=== PATIENT | female | born 1960 | race Caucasian/White ===

== ENCOUNTER → 2017-09-19 13:47 | Outpatient (CLI) | payer MEDICARE, SELFPAY ==
--- NOTE | 2017-09-19 13:52 | RAD_ITS ---
STUDY: X-RAY CHEST REASON FOR EXAM: Female, 57 years old. Hard to breathe, cough for 3 weeks. TECHNIQUE: PA and lateral views of the chest. COMPARISON: None. FINDINGS: The lungs are deeply expanded. The basilar interstitial densities are mildly prominent, reflecting acute versus chronic inflammatory change. Focal scarring also suggested in the anterior periphery of a lung base on the lateral view. There is no demonstrated pleural abnormality. Normal size heart. Normal mediastinum and jaclyn. Normal visualized pulmonary arteries. Normal visualized aortic arch and descending thoracic aorta. There are degenerative changes and a subtle S-shaped scoliosis of the visualized thoracic spine. Normal visualized ribs, clavicles, and shoulders. There is no demonstrated abnormality of the visualized soft tissue structures of the upper abdomen. RAD/Chest PA and Lateral IMPRESSION: Mild acute versus chronic inflammatory basilar interstitial densities. Electronically Signed: Collin Lion MD at 14:17 EDT , Service support ,
== END ==
DX: R05 Cough (principal)
CPT/HCPCS: 71046

== ENCOUNTER → 2019-02-22 09:47 | Outpatient (CLI) | payer MEDICARE, SELFPAY ==
[2019-02-22 10:18] LABS: Absolute Lymphocyte Count 1.45 X10^3/uL (0.83-4.51); Absolute Neutrophil Count 4.7 X10^3/uL (2.0-7.7); Basophil% 1.3 % (0-1); Eosinophil# 0.32 X10^3/uL; Eosinophils% 4.3 % (0-5); Hematocrit 39.9 % (37-47); Hemoglobin 13.5 g/dL (12.0-15.0); Lymphocyte # 1.45 X10^3/ul (4.0); Lymphocyte % 19.4 % (19-41); Mean Corp Hgb Conc 33.8 g/dL (32-36); Mean Corpuscular Hgb 31.8 pg (27.0-32.0); Mean Corpuscular Volume 94.1 fL (81-99); Mean Platelet Vol. 9.4 fl (6.2-12.0); Monocyte# 0.89 X10^3/uL; Monocyte% 11.9 % (0-10); NRBC Flagged by Analyzer 0 % (0-5); Neutrophil # 4.67 X10^3/uL (2.7-7.7); Neutrophil % 62.4 % (47-70); Platelet Count 296 K/mm3 (150-450); RBC Distribution Width SD 48.2 fl (35.1-43.9); Red Blood Count 4.24 M/mm3 (4.2-5.4); White Blood Count 7.5 K/mm3 (4.4-11.0)
[2019-02-22 10:44] LABS: Valproic Acid (Depakene) Level 60 ug/mL (50-100)
[2019-02-22 10:50] LABS: ALB/GLOB Ratio 1.3 RATIO (0.9-2.4); AST(SGOT) 24 U/L (15-37); Alanine Aminotransfer ALT/SGPT 39 U/L (13-56); Albumin, Serum 4.3 g/dL (3.2-5.0); Alkaline Phosphatase 79 U/L (45-117); Anion Gap 7 (5-15); BUN 10 mg/dL (7-18); BUN/Creat Ratio 11.8 RATIO (10-20); Calcium,Total 9.3 mg/dL (8.5-10.1); Chloride 96 mmol/L (98-107); Creatinine, Serum 0.85 mg/dL (0.55-1.02); EST Glomerular Filtration Rate 73 mL/min (>60); Est Glom Filt Rate - Afr Amer 88 mL/min (>60); Globulin 3.2 g/dL (2.2-4.2); Glucose 98 mg/dL (74-106); Potassium 4.4 mmol/L (3.5-5.1); Protein, Total 7.5 g/dL (6.4-8.2); Sodium Level 132 mmol/L (136-145)
== END ==
PROVIDERS: Referring Provider Registered Nurse; Visit Provider Registered Nurse
DX: F31.9 Bipolar disorder, unspecified (principal); Z79.899 Other long term (current) drug therapy
CPT/HCPCS: 36415; 80053; 80164; 85025

== ENCOUNTER → 2020-02-12 10:24 | Outpatient (CLI) | payer MEDICARE, SELFPAY ==
[2020-02-12 11:23] LABS: Absolute Lymphocyte Count 1.26 X10^3/uL (0.83-4.51); Absolute Neutrophil Count 4.2 X10^3/uL (2.0-7.7); Basophil# 0.09 X10^3/uL; Basophil% 1.3 % (0-1); Eosinophil# 0.25 X10^3/uL; Eosinophils% 3.7 % (0-5); Hematocrit 39.7 % (37-47); Hemoglobin 13.4 g/dL (12.0-15.0); Lymphocyte # 1.26 X10^3/ul (4.0); Lymphocyte % 18.7 % (19-41); Mean Corp Hgb Conc 33.8 g/dL (32-36); Mean Corpuscular Hgb 31.8 pg (27.0-32.0); Mean Corpuscular Volume 94.3 fL (81-99); Mean Platelet Vol. 9.9 fl (6.2-12.0); Monocyte# 0.89 X10^3/uL; Monocyte% 13.2 % (0-10); NRBC Flagged by Analyzer 0 % (0-5); Neutrophil # 4.21 X10^3/uL (2.7-7.7); Neutrophil % 62.5 % (47-70); Platelet Count 319 K/mm3 (150-450); RBC Distribution Width CV 13.9 % (11.6-14.6); RBC Distribution Width SD 48.3 fl (35.1-43.9); Red Blood Count 4.21 M/mm3 (4.2-5.4); White Blood Count 6.7 K/mm3 (4.4-11.0)
[2020-02-12 12:08] LABS: Valproic Acid (Depakene) Level 58 ug/mL (50-100)
[2020-02-12 12:11] LABS: ALB/GLOB Ratio 1.2 RATIO (0.9-2.4); AST(SGOT) 14 U/L (15-37); Alanine Aminotransfer ALT/SGPT 21 U/L (13-56); Albumin, Serum 4.1 g/dL (3.2-5.0); Alkaline Phosphatase 71 U/L (45-117); Anion Gap 6 (5-15); BUN 5 mg/dL (7-18); BUN/Creat Ratio 6.5 RATIO (10-20); Calcium,Total 8.9 mg/dL (8.5-10.1); Chloride 93 mmol/L (98-107); Creatinine, Serum 0.76 mg/dL (0.55-1.02); EST Glomerular Filtration Rate 82 mL/min (>60); Est Glom Filt Rate - Afr Amer 99 mL/min (>60); Globulin 3.3 g/dL (2.2-4.2); Glucose 93 mg/dL (74-106); Potassium 4.3 mmol/L (3.5-5.1); Protein, Total 7.4 g/dL (6.4-8.2); Sodium Level 127 mmol/L (136-145)
== END ==
PROVIDERS: PCP Family Medicine; Referring Provider Registered Nurse; Visit Provider Registered Nurse
DX: Z79.899 Other long term (current) drug therapy (principal)
CPT/HCPCS: 36415; 80053; 80164; 85025

== ENCOUNTER 2020-08-30 13:02 | Inpatient (IN) | payer MEDICARE, SELFPAY ==
[2020-08-30] VITALS (11 sets, daily range): BP systolic 135–180; BP diastolic 74–118; PULSE 89–114; RESP 16–26; TEMP 36.5–36.8; O2SAT 88–96; BMI 34.9; BMI 34.6; BMI 35.0
--- NOTE | 2020-08-30 13:34 | EKG12_ITS ---
Test Reason : AM EKG Blood Pressure : / mmHG Vent. Rate : 089 BPM Atrial Rate : 089 BPM P-R Int : 154 ms QRS Dur : 100 ms QT Int : 398 ms P-R-T Axes : 066 041 038 degrees QTc Int : 484 ms Normal sinus rhythm Nonspecific ST abnormality Prolonged QT Abnormal ECG Confirmed by JORDANA CABRAL, ROZ ([id number]), editor producer KAMRYN JOHNSON ([id number]) on 09/03/2020 11:26:29 AM Referred By: RAJI Confirmed By:ROZ SILVEIRA MD
--- NOTE | 2020-08-30 13:35 | ED.VIS.DYS ---
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 Negative for: Fever Chest Pain: None Narrative: 60-year-old female who had Covid several months ago and had her first vaccine 3 weeks ago, due for her second injection and 6 days presenting with several days worth of nonproductive cough and progressively worsening shortness of breath. She has had no contact with anyone with Covid that she knows of. She denies any history of heart or lung problems. She denies myalgias, loss of taste or smell, vomiting or diarrhea. She states this started like a cold with head congestion, and then went into her chest. Some mild headaches along with the head congestion. - Past Medical History (1) Anxiety Status: Chronic (2) Hyperlipidemia Status: Chronic Past Medical History - Allergies and Home Meds Allergies/Adverse Reactions: Allergies acetaminophen [From Percocet] Adverse Reaction (Verified 08/30/20 13:04) Vomiting oxycodone [From Percocet] Adverse Reaction (Verified 08/30/20 13:04) Vomiting Primary Care Physician: Baltazar Andrade MD [Primary Care Provider] - Smoking Status: Current every day smoker Review of Systems General: Denies: Chills, Fever, Sweats Eyes: Denies: Visual changes - bilaterally, Diplopia ENT: Reports: Rhinorrhea - Congestion, Sore throat - Mild. Denies: Bilateral ear pain Cardiovascular: Denies: Chest pain, Palpitations Respiratory: Reports: Dyspnea, Cough, Dyspnea on exertion, Orthopnea. Denies: Sputum Gastrointestinal: Denies: Abdominal pain, Nausea, Vomiting, Diarrhea, Melena, Hematochezia Genitourinary: Denies: Dysuria, Hematuria, Frequency Musculoskeletal: Denies: Back pain, Swelling, Extremity Pain Skin: Denies: Rash, Wounds Neurological: Reports: Headache. Denies: Weakness, Numbness Physical Exam Vital Signs/Narrative: Vital Signs Temp Pulse Resp BP Pulse Ox 08/30/20 13:02 97.8 F 98 22 H 177/84 H 92 Inital Vital Signs reviewed: Yes General: Well nourished, Well developed, No Acute Distress Head: Normocephalic, Atraumatic Eyes: Perrl, EOMI ENT: Moist mucous membranes, No rhinorrhea Neck: Supple, Nontender, No lymphadenopathy, No JVD Cardiovascular: Regular rate, Regular rhythm, No murmurs, Normal S1, Normal S2 Respiratory: No distress - But mildly tachypneic, Chest nontender, Wheezing - Significant, throughout, symmetric Abdomen: Soft, Nontender, Nondistended, Normal bowel sounds Back: Nontender, Normal Inspection Extremities: Nontender, No edema. Negative for: Calf Tenderness Skin: Normal color, No rash, No Trauma Neurological: Alert, Oriented x3, Cranial nerves II-XII grossly intact, Normal Strength, Normal Sensation, Normal Gait Psychological: Normal affect, Normal Mood Diagnostic/Tx/Re-eval Impressions Chest X-Ray 08/30/20 15:15 IMPRESSION: Ill-defined opacities within the lower lungs, a nonspecific finding may be secondary to underlying atelectasis and/or pneumonia. Electronically Signed: Birgit Castillo MD at 16:05 EDT Tel , Service support , 08/30/20 15:15 Chest 1 View (Portable) [RAD] Stat 08/30/20 14:05 Mucosa - Nasopharyngeal Influenza Types A,B Direct FA ([place]ALIA) - Final 08/30/20 13:45 Mucosa - Nose SARS-CoV-2 Antigen (Rapid) - Final Laboratory Results 08/30/20 08/30/20 08/30/20 13:55 13:55 13:55 WBC 12.0 H RBC 4.22 Hgb 13.5 Hct 39.2 MCV 92.9 MCH 32.0 MCHC 34.4 RDW Std Deviation 46.2 H RDW Coeff of Grey 13.6 Plt Count 337 MPV 9.1 Immature Gran % (Auto) 0.600 Neut % (Auto) 70.2 H Lymph % (Auto) 11.5 L [place] % (Auto) 11.6 H Eos % (Auto) 5.1 H Baso % (Auto) 1.0 Absolute Neuts (auto) 8.4 H Absolute Lymphs (auto) 1.38 Nucleated RBC % 0 Sodium 127 L Potassium 3.8 Chloride 94 L Carbon Dioxide 29.0 Anion Gap 4 L BUN 8 Creatinine 0.67 Estim Creat Clear Calc 90.07 Est GFR (MDRD) Af Amer 116 Est GFR (MDRD) Non-Af 96 BUN/Creatinine Ratio 12.0 Glucose 96 Lactic Acid 0.7 Calcium 9.1 Troponin I < 0.015 B-Natriuretic Peptide 08/30/20 13:55 WBC RBC Hgb Hct MCV MCH MCHC RDW Std Deviation RDW Coeff of Grey Plt Count MPV Immature Gran % (Auto) Neut % (Auto) Lymph % (Auto) [place] % (Auto) Eos % (Auto) Baso % (Auto) Absolute Neuts (auto) Absolute Lymphs (auto) Nucleated RBC % Sodium Potassium Chloride Carbon Dioxide Anion Gap BUN Creatinine Estim Creat Clear Calc Est GFR (MDRD) Af Amer Est GFR (MDRD) Non-Af BUN/Creatinine Ratio Glucose Lactic Acid Calcium Troponin I B-Natriuretic Peptide 26.0 - Rhythm Strip Rhythm Strip: Sinus Rhythm Rate: 90 Ectopy: None - EKG Initial EKG Interpretation: Sinus Rhythm, No Acute Injury Pattern, - - Prolonged QTC at 484. Normal axis. Treatment - Dyspnea: Albuterol, Atrovent Repeat Evaluation: Improved - Medical Decision Making X-ray appears to show some early airspace disease in my interpretation 1 view. Confirmed by radiology. She feels much better after aerosol treatments, her Covid and influenza are negative, her lactate is within normal limits and she is hemodynamically and clinically stable on reevaluation but she desatted, taken her oxygen off after treatment and feeling much better, her saturations still desat to 88%. Therefore I think she would benefit from admission to the hospital. Her QTC is a little long so avoiding a azithromycin and giving Rocephin at this time. ED Disposition - Plan for ED Patient: Disposition: Acute Care Hospital [facility] Diagnosis: Pneumonia, Hypoxemia Referrals: Baltazar Andrade MD [Primary Care Provider] -
[2020-08-30] MEDS: Ipratropium/Albuterol Sulfate 3 ML AMPUL.NEB INHALATION ×2 (14:09→19:20)
[2020-08-30 14:15] LABS: Absolute Lymphocyte Count 1.38 X10^3/uL (0.83-4.51); Absolute Neutrophil Count 8.4 X10^3/uL (2.0-7.7); Basophil# 0.12 X10^3/uL; Eosinophil# 0.61 X10^3/uL; Eosinophils% 5.1 % (0-5); Hematocrit 39.2 % (37-47); Hemoglobin 13.5 g/dL (12.0-15.0); Lymphocyte # 1.38 X10^3/ul (4.0); Lymphocyte % 11.5 % (19-41); Mean Corp Hgb Conc 34.4 g/dL (32-36); Mean Corpuscular Volume 92.9 fL (81-99); Mean Platelet Vol. 9.1 fl (6.2-12.0); Monocyte# 1.39 X10^3/uL; Monocyte% 11.6 % (0-10); NRBC Flagged by Analyzer 0 % (0-5); Neutrophil # 8.38 X10^3/uL (2.7-7.7); Neutrophil % 70.2 % (47-70); Platelet Count 337 K/mm3 (150-450); RBC Distribution Width CV 13.6 % (11.6-14.6); RBC Distribution Width SD 46.2 fl (35.1-43.9); Red Blood Count 4.22 M/mm3 (4.2-5.4)
[2020-08-30 14:34] LABS: Anion Gap 4 (5-15); BUN 8 mg/dL (7-18); Calcium,Total 9.1 mg/dL (8.5-10.1); Chloride 94 mmol/L (98-107); Creatinine, Serum 0.67 mg/dL (0.55-1.02); EST Glomerular Filtration Rate 96 mL/min (>60); Est Glom Filt Rate - Afr Amer 116 mL/min (>60); Estimated Creatinine Clearance 90.07 ml/min; Glucose 96 mg/dL (74-106); Potassium 3.8 mmol/L (3.5-5.1); Sodium Level 127 mmol/L (136-145)
[2020-08-30] MEDS: Albuterol 2.5 MG/3 ML VIAL.NEB. INHALATION ×2 (14:42→22:41)
[2020-08-30 14:44] LABS: Lactic Acid 0.7 mmol/L (0.4-1.9)
--- NOTE | 2020-08-30 15:15 | RAD_ITS ---
STUDY: X-RAY CHEST REASON FOR EXAM: Female, 60 years old. Shortness of breath TECHNIQUE: Single frontal view of the chest. COMPARISON: 09/19/2017 FINDINGS: There are nonspecific ill-defined opacities within the lower lungs. Normal size heart. Normal mediastinum and jaclyn. Normal visualized pulmonary arteries. Normal visualized aortic arch and descending thoracic aorta. Normal visualized thoracic spine. Normal visualized ribs, clavicles, and shoulders. There is no demonstrated abnormality of the visualized soft tissue structures of the upper abdomen. RAD/Chest 1 View (Portable) IMPRESSION: Ill-defined opacities within the lower lungs, a nonspecific finding may be secondary to underlying atelectasis and/or pneumonia. Electronically Signed: Birgit Castillo MD at 16:05 EDT Tel , Service support ,
--- NOTE | 2020-08-30 16:54 | PCM.HP.STD ---
Problem List (1) Sepsis Status: Acute Qualifiers: Sepsis type: sepsis due to unspecified organism Sepsis acute organ dysfunction status: unspecified Qualified Code(s): A41.9 - Sepsis, unspecified organism (2) Pneumonia Status: Acute Qualifiers: Pneumonia type: due to unspecified organism Laterality: bilateral Lung location: lower lobe of lung Qualified Code(s): J18.9 - Pneumonia, unspecified organism (3) Hypoxemia Status: Acute (4) Obesity (BMI 30-39.9) Status: Chronic (5) Tobacco use Status: Chronic (6) Anxiety Status: Chronic (7) Hyperlipidemia Status: Chronic Qualifiers: Hyperlipidemia type: unspecified Qualified Code(s): E78.5 - Hyperlipidemia, unspecified History of Present Illness Date of Admission: 08/30/20 Chief Complaint: Dyspnea, cough. The patient is a 60 y/o F w/ PMHx: Anxiety and Depression/Bipolar disorder, Obesity, HLD, Tobacco use who presents to the [facility] ED on 08/30/20 with history of onset dyspnea over the last 2-3 days, worsening with associated wheezing and non-productive cough, worsened with exertion/increased activity and certain positions with initially congestion, mild headaches at first onset with sore throat and rhinorrhea associated. She denies any body aches, altered sense of taste or smell, nausea, emesis, diarrhea. Patient did have her first Covid vaccination approximately 3 weeks prior and is due for her second injection in 6 days to current presentation. Patient had COVID prior toward the end of the prior year. Work-up in the ED included T 97.8, heart 98, BP initially 177/84, respiratory rate 22, 88% on room air, CBC with WC 12, hemoglobin 13.5, platelet 337 with left shift as well as increased eosinophils, monocytes, BMP with sodium 127, chloride 97 otherwise not marked appearing, lactic acid 0.7, troponin less than 0.015, BNP 26, blood culture x2 pending per ED, negative rapid influenza panel, negative rapid SARS Covid antigen, chest x-ray with ill-defined opacities within the lower lungs, nonspecific finding possibly secondary to atelectasis and/or pneumonia, EKG w/ SR with mildly prolonged QTC at 484. In the ED patient ministered albuterol and DuoNeb therapies in addition to Rocephin. Past Medical History Past Medical History (Chronic Problems): Chronic Problems Anxiety (Chronic) Hyperlipidemia (Chronic) Obesity (BMI 30-39.9) (Chronic) Tobacco use (Chronic) Allergies acetaminophen [From Percocet] Adverse Reaction (Verified 08/30/20 13:04) Vomiting oxycodone [From Percocet] Adverse Reaction (Verified 08/30/20 13:04) Vomiting Home Medications: Ambulatory Orders Medication Instructions Recorded Aspirin [Aspirin, Baby] 81 mg PO DAILY@0800 08/30/20 Cholecalciferol (Vitamin D3) 2,000 unit PO DAILY 08/30/20 [Vitamin D3] Divalproex Sodium [Depakote] 750 mg PO QHS 08/30/20 [place]-3 Fatty Acids/Fish Oil [Fish 1 each PO DAILY 08/30/20 Oil 1,000 mg Capsule] Pravastatin [Pravachol] 20 mg PO QHS 08/30/20 Quetiapine Fumarate [Seroquel Xr] 150 mg PO BID 08/30/20 Surgical History: - - R elbow surgery. 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 Smoking Status: Current every day smoker - Patient with ongoing 1/2 ppd cigarette tobacco usage since teenager. Tobacco Use: Cigarettes Alcohol: None Drugs: None - *Family History Maternal History Items: - - Maternal family history of lupus. Paternal History Items: - - Patient denies any marked paternal family history including heart disease, diabetes, cancer. Review of Systems Constitutional: Reports: Anorexia, Malaise, Weakness, Fatigue. Denies: Chills, Fever, Weight Change HEENT: Reports: Head Aches, Nasal Congestion, Post Nasal Drip, Sinus Congestion. Denies: Sinus Drainage Cardiovascular: Denies: Chest Pain, Chest Pressure, Chest Tightness, Orthopnea, Palpitations, Syncope Respiratory: Reports: Cough, Shortness of Breath, Shortness of breath at rest, Shortness of breath upon exertion, Wheezing. Denies: Sputum production Gastrointestinal: Reports: Nausea. Denies: Abdominal Pain, Vomiting Genitourinary: Denies: Dysuria Musculoskeletal: Reports: Back Pain, Joint Pain. Denies: Joint Tenderness Skin: Denies: Rash, Wounds Neurological: Denies: Numbness, Tingling, Focal weakness Psychiatric: Reports: Anxiety, Depression. Denies: Homicidal Ideations, Suicidal Ideations Hematologic/ Lymphatic: Denies: Easy Bruising, Easy Bleeding VTE Information - Inpt Only VTE Present on Admission: No VTE Mechan Device Prophylaxis: SCD's VTE Pharm Prophylaxis ordered?: Yes Patient Problems: Active and Suspected Problems Pneumonia (Acute) Hypoxemia (Acute) Subjective: Patient seated upright in ED bed, fatigued, ill-appearing, occasional coarse coughing. Objective: Physical Examination: General: awake, alert, oriented x 3 and cooperative, seated upright in the ED bed, fatigued and ill-appearing. Skin: normal color, turgor, no icterus, cyanosis. HEENT: AT/NC, EOMI, PERRLA, dry MM, no carotid bruits or JVD noted. Lungs: Diminished breath sounds, greater bases, moderate effort, mildly increased respiratory rate, and expiratory occasional wheezing, mildly rhonchorous bilaterally. Heart: Mildly tachycardic with regular rhythm; no gallop, rub audible. Abdomen: soft, obese, NTTP, ND, distant normal BS, no HSM. Extremities: no cyanosis, clubbing, or edema. Neurological: patient awake, alert, oriented as noted; cognitive function intact; pupils equally reactive to light and accomodation; cranial nerves II-XII grossly normal, moving all 4 extremities, no focal deficits, strength moderately to severely global decrease secondary to acute presentation. Psychiatric: affect appears fatigued, ill-appearing, no acute evidence of depressive or anxiety feelings. - Physical Exam Vitals/I&O's: Vital Signs Temp Pulse Resp BP Pulse Ox 97.7 F L 94 18 135/118 H 93 08/30/20 15:56 08/30/20 15:56 08/30/20 15:56 08/30/20 15:56 08/30/20 16:44 Oxygen Flow Rate (L/min) 2 Oxygen Delivery Method Nasal Cannula Weight: 230 lb Body Mass Index (BMI) 34.9 Microbiology Past 72 Hours 08/30/20 14:05 Mucosa - Nasopharyngeal Influenza Types A,B Direct FA (ORALIA) - Final 08/30/20 13:45 Mucosa - Nose SARS-CoV-2 Antigen (Rapid) - Final Laboratory Results 08/30/20 13:55: WBC 12.0 H, RBC 4.22, Hgb 13.5, Hct 39.2, MCV 92.9, MCH 32.0, MCHC 34.4, RDW Std Deviation 46.2 H, RDW Coeff of Grey 13.6, Plt Count 337, MPV 9.1, Immature Gran % (Auto) 0.600, Neut % (Auto) 70.2 H, Lymph % (Auto) 11.5 L, [place] % (Auto) 11.6 H, Eos % (Auto) 5.1 H, Baso % (Auto) 1.0, Absolute Neuts (auto) 8.4 H, Absolute Lymphs (auto) 1.38, Nucleated RBC % 0 08/30/20 13:55: Sodium 127 L, Potassium 3.8, Chloride 94 L, Carbon Dioxide 29.0, Anion Gap 4 L, BUN 8, Creatinine 0.67, Estim Creat Clear Calc 90.07, Est GFR (MDRD) Af Amer 116, Est GFR (MDRD) Non-Af 96, BUN/Creatinine Ratio 12.0, Glucose 96, Calcium 9.1, Troponin I < 0.015 08/30/20 13:55: Lactic Acid 0.7 08/30/20 13:55: B-Natriuretic Peptide 26.0 Current Medications Ceftriaxone Sodium (Rocephin) 1 gm in 50 mls @ 100 mls/hr IV X1 ONE Stop: 08/30/20 17:18 Assessment/Plan All Active Problems Pneumonia (Acute) Hypoxemia (Acute) Sepsis (Acute) The patient is a 60 y/o F w/ PMHx: Anxiety and Depression/Bipolar disorder, Obesity, HLD, Tobacco use who presents to the [facility] ED on 08/30/20 with history of onset dyspnea over the last 2-3 days, worsening with associated wheezing and non-productive cough, worsened with exertion/increased activity and certain positions with initially congestion, mild headaches at first onset with sore throat and rhinorrhea associated. 1. Acute Sepsis secondary to Acute [facility] Community Acquired Pneumonia with associated ? Acute on possible Underlying Reactive Airway Disease/COPD exacerbation with Hypoxia: Will admit to [facility], maintain on oxygen with wean as tolerated to room air, continue ATC duonebs, PRN albuterol, IV methylprednisolone, HOB, IS parameters, CBC w/ mild WBC elevation and L shift, maintained on IV Rocephin, defer Azithromycin given QTC with repeat EKG in AM and initiation if appropriate, HOB, IS parameters w/ pending sputum cultures, respiratory viral panel and urine antigens. 2. Hyponatremia, suspect Hypovolemia: Admission Na 127, Chl 94, will judiciously hydrate and repeat CMP in AM. 3. Anxiety and Depression/Bipolar disorder: Will continue home depakote, seroquel regimen, recommend continued outpatient therapy. 4. Hyperlipidemia: We will continue patient on statin therapy. 5. Obesity: Weight loss and lifestyle changes encouraged. 6. Tobacco Abuse: Encouraged cessation, inpatient consultation per RT, NR if desired. 7. DVT prophylaxis: SCDs, Lovenox. Inpatient E&M: 44721 Init Hosp L3 Procedures: 92420 Advncd Care Plan 30 Min
[2020-08-30] MEDS: Ceftriaxone 1 GM/50 ML BAG IV (17:11)
[2020-08-30 18:33] LABS: Magnesium 2.2 mg/dL (1.6-2.6)
[2020-08-30 18:47] LABS: Procalcitonin 0.04 ng/mL (0.00-0.09)
[2020-08-30] MEDS: 0.9% Normal Saline 1,000 ML 125 ML IV (19:02)
[2020-08-30] MEDS: tiZANidine HCl 2 MG Tablet PO (19:02)
[2020-08-30] MEDS: 0.9% Saline Lock 10 ML Syringe IV (19:02)
[2020-08-30] MEDS: Ketorolac 15 MG/ML Vial IV (19:02)
[2020-08-30] MEDS: guaiFENesin 10 ML UDC (200MG/10ML) 20 ML PO (19:02)
[2020-08-30] MEDS: Famotidine 20 MG Tablet PO (21:51)
[2020-08-30] MEDS: Pravastatin 20 MG Tablet PO (21:51)
[2020-08-30] MEDS: Divalproex Sodium 250 MG Tablet 750 MG PO (21:52)
[2020-08-30] MEDS: QUEtiapine 100 MG Tablet 300 MG PO (21:53)
[2020-08-31] VITALS (11 sets, daily range): BP systolic 158–171; BP diastolic 65–80; PULSE 92–100; RESP 18–20; TEMP 36.5–36.9; O2SAT 93–96
[2020-08-31] MEDS: Ketorolac 15 MG/ML Vial IV ×4 (00:12→22:10)
[2020-08-31] MEDS: 0.9% Normal Saline 1,000 ML 125 ML IV ×3 (02:47→18:08)
[2020-08-31] MEDS: Acetaminophen 325 MG Tablet 650 MG PO ×2 (05:00→12:20)
[2020-08-31] MEDS: guaiFENesin 10 ML UDC (200MG/10ML) 20 ML PO ×2 (05:00→10:10)
--- NOTE | 2020-08-31 05:55 | EKG12_ITS ---
Test Reason : SOB Blood Pressure : / mmHG Vent. Rate : 090 BPM Atrial Rate : 090 BPM P-R Int : 140 ms QRS Dur : 098 ms QT Int : 396 ms P-R-T Axes : 069 064 041 degrees QTc Int : 484 ms Normal sinus rhythm Nonspecific ST abnormality Prolonged QT Abnormal ECG Confirmed by MEGA CABRAL, CONCHITA ([id number]), department editor KATLYN MCMULLEN ([id number]) on 08/31/2020 2:22:39 PM Referred By: BB Confirmed By:CONCHITA AYOUB MD
[2020-08-31 06:04] LABS: Absolute Neutrophil Count 9.7 X10^3/uL (2.0-7.7); Basophil# 0.08 X10^3/uL; Basophil% 0.8 % (0-1); Eosinophil# 0.01 X10^3/uL; Eosinophils% 0.1 % (0-5); Hemoglobin 12.7 g/dL (12.0-15.0); Lymphocyte % 4.7 % (19-41); Mean Corp Hgb Conc 33.4 g/dL (32-36); Mean Corpuscular Hgb 31.6 pg (27.0-32.0); Mean Corpuscular Volume 94.5 fL (81-99); Mean Platelet Vol. 8.8 fl (6.2-12.0); Monocyte# 0.23 X10^3/uL; Monocyte% 2.2 % (0-10); NRBC Flagged by Analyzer 0 % (0-5); Neutrophil # 9.69 X10^3/uL (2.7-7.7); Neutrophil % 91.6 % (47-70); POSITIVE DIFFERENTIAL YES; Platelet Count 297 K/mm3 (150-450); RBC Distribution Width CV 13.5 % (11.6-14.6); RBC Distribution Width SD 47.3 fl (35.1-43.9); Red Blood Count 4.02 M/mm3 (4.2-5.4); White Blood Count 10.6 K/mm3 (4.4-11.0)
[2020-08-31 06:15] LABS: Differential Indicated SCAN CRITERIA MET
[2020-08-31 06:31] LABS: AST(SGOT) 19 U/L (15-37); Alanine Aminotransfer ALT/SGPT 35 U/L (13-56); Albumin, Serum 3.5 g/dL (3.2-5.0); Alkaline Phosphatase 81 U/L (45-117); Anion Gap 5 (5-15); BUN 7 mg/dL (7-18); BUN/Creat Ratio 10.9 RATIO (10-20); Calcium,Total 8.6 mg/dL (8.5-10.1); Chloride 96 mmol/L (98-107); Creatinine, Serum 0.64 mg/dL (0.55-1.02); EST Glomerular Filtration Rate 100 mL/min (>60); Est Glom Filt Rate - Afr Amer 121 mL/min (>60); Globulin 3.5 g/dL (2.2-4.2); Glucose 139 mg/dL (74-106); Potassium 4.3 mmol/L (3.5-5.1); Sodium Level 128 mmol/L (136-145)
[2020-08-31] MEDS: Ondansetron 4 MG/2 ML Vial IV (06:53)
[2020-08-31] MEDS: Aspirin 81 MG TAB.CHEW PO (08:37)
--- NOTE | 2020-08-31 10:48 | CASEMGMT ---
BOBBY DOAN Assessment: Face to Face with pt for initial transition planning/care coordination assessment. BOBBY DOAN introduced self and role at [facility], pt voices understanding and consents to assessment. Pt is A/O x4 and answers all questions appropriately at this time. Pt sitting up in bed with O2 on in no distress. Care providers, pharmacy, and demographics verified/updated. Admitting Dx: Pna, hypoxia, asthma with exac PCP: [facility] Specialists: Pt reports she was supposed to have her first visit with the kidney doctor today via telehealth. She does not know the name of the doctor. Preferred Pharmacy: [facility] Prescription Benefit: yes LW/HPOA: Pt denies having a LW or DPOA. LNOK: Daughter Sabrina Dumont and daughter Mandy Vasquez Living Arrangements: Pt lives with daughter Mandy in a single story house with 4-5 steps to enter with a rail. Pt states she is I in ADL's and denies concerns at home. Transportation: Pt drives self and does not have concerns regarding transportation. DME/HHC/SNF: Pt has no DME at home. Provided pt with list of local in network DME providers. If pt should need O2 at dc, pt chose [facility]. Pt denies previous HHC or SNF stays. Pt states no concerns with going home at time of dc. Pt states no further concerns/needs. CM to follow for O2 needs. Advised pt to ask CM if any further question/concerns/needs arise, voices understanding. Pt Goal: Home Plan: Home
--- NOTE | 2020-08-31 10:50 | PCM.PN.HOSP ---
Patient Problems: Active and Suspected Problems Pneumonia (Acute) Hypoxemia (Acute) Sepsis (Acute) Subjective: breathing well with oxygen. Coughing up phlegm. Vitals/I&O's: Vital Signs Temp Pulse Resp BP Pulse Ox 36.8 C 92 18 171/67 H 96 08/31/20 10:12 08/31/20 10:12 08/31/20 10:12 08/31/20 10:12 08/31/20 10:12 Oxygen Flow Rate (L/min) 4 Oxygen Delivery Method Nasal Cannula Weight: 103.1 kg Body Mass Index (BMI) 34.6 Intake and Output for Last 24 Hours 08/29/20 08/30/20 08/31/20 23:59 23:59 23:59 Intake Total 50 / 650 3141.67 / 3141.67 Output Total 600 / 600 Balance 50 / 650 2541.67 / 2541.67 General: Alert, No apparent distress HEENT: Atraumatic, Normocephalic Neck: No Nodes, Thyroid Normal Size and Texture Lungs: Normal air movement, - - coarse breath sounds bilaterally. Cardiovascular: Regular rate, Regular Rhythm Abdomen: Bowel Sounds Present, Soft, Non Tender, Non-Distended Extremities: No edema, No Calf Tenderness Skin: No rashes, No breakdown Musculoskeletal: No Tenderness to Palpation of Joints or Extremities, No Muscle Wasting Psych/Mental Status: Normal Affect, Appropriate Microbiology Past 72 Hours 08/30/20 22:15 Urine, Random Legionella Antigen - Final 08/30/20 22:15 Urine, Random Streptococcus pneumoniae Antigen (M - Final 08/30/20 Unknown Mucosa - Nasopharyngeal Respiratory Panel (PCR) - Final Rhinovirus 08/30/20 14:05 Mucosa - Nasopharyngeal Influenza Types A,B Direct FA ([place]) - Final 08/30/20 13:45 Mucosa - Nose SARS-CoV-2 Antigen (Rapid) - Final Laboratory Results 08/30/20 13:55: WBC 12.0 H, RBC 4.22, Hgb 13.5, Hct 39.2, MCV 92.9, MCH 32.0, MCHC 34.4, RDW Std Deviation 46.2 H, RDW Coeff of Grey 13.6, Plt Count 337, MPV 9.1, Immature Gran % (Auto) 0.600, Neut % (Auto) 70.2 H, Lymph % (Auto) 11.5 L, Ray % (Auto) 11.6 H, Eos % (Auto) 5.1 H, Baso % (Auto) 1.0, Absolute Neuts (auto) 8.4 H, Absolute Lymphs (auto) 1.38, Nucleated RBC % 0 08/30/20 13:55: Sodium 127 L, Potassium 3.8, Chloride 94 L, Carbon Dioxide 29.0, Anion Gap 4 L, BUN 8, Creatinine 0.67, Estim Creat Clear Calc 90.07, Est GFR (MDRD) Af Amer 116, Est GFR (MDRD) Non-Af 96, BUN/Creatinine Ratio 12.0, Glucose 96, Calcium 9.1, Troponin I < 0.015 08/30/20 13:55: Lactic Acid 0.7 08/30/20 13:55: B-Natriuretic Peptide 26.0 08/30/20 13:55: Magnesium 2.2 08/30/20 13:55: Procalcitonin 0.04 08/31/20 05:55: WBC 10.6, RBC 4.02 L, Hgb 12.7, Hct 38.0, MCV 94.5, MCH 31.6, MCHC 33.4, RDW Std Deviation 47.3 H, RDW Coeff of Grey 13.5, Plt Count 297, MPV 8.8, Immature Gran % (Auto) 0.600, Neut % (Auto) 91.6 H, Lymph % (Auto) 4.7 L, Ray % (Auto) 2.2, Eos % (Auto) 0.1, Baso % (Auto) 0.8, Absolute Neuts (auto) 9.7 H, Absolute Lymphs (auto) 0.50 L, Nucleated RBC % 0 08/31/20 05:55: Sodium 128 L, Potassium 4.3, Chloride 96 L, Carbon Dioxide 27.0, Anion Gap 5, BUN 7, Creatinine 0.64, Estim Creat Clear Calc 94.30, Est GFR (MDRD) Af Amer 121, Est GFR (MDRD) Non-Af 100, BUN/Creatinine Ratio 10.9, Glucose 139 H, Calcium 8.6, Total Bilirubin 0.30, AST 19, ALT 35, Alkaline Phosphatase 81, Total Protein 7.0, Albumin 3.5, Globulin 3.5, Albumin/Globulin Ratio 1.0 Current Medications Acetaminophen (Acetaminophen 325 Mg Tablet) 650 mg PO Q6H PRN PRN PRN Reason: Pain Score 1-10/Temp > 100.7 F Last Admin: 08/31/20 05:00 Dose: 650 mg Documented by: Al Hydroxide/Mg Hydroxide (Mag Hydrox/Al Hydrox/Simeth 30 Ml Udc) 30 ml PO Q6H PRN PRN PRN Reason: Gastric Burning Albuterol Sulfate (Albuterol 2.5 Mg/3 Ml Vial.Neb.) 2.5 mg INHALATION Q2H PRN PRN PRN Reason: Dyspnea, wheezing Last Admin: 08/30/20 22:41 Dose: 2.5 mg Documented by: Albuterol/Ipratropium (Ipratropium/Albuterol Sulfate 3 Ml Ampul.Neb) 3 ml INHALATION Q6HWA.RT [facility] Last Admin: 08/30/20 19:20 Dose: 3 ml Documented by: Aspirin (Aspirin 81 Mg Tab.Chew) 81 mg PO DAILY@0800 [facility] Last Admin: 08/31/20 08:37 Dose: 81 mg Documented by: Bupropion HCl (Bupropion 75 Mg Tablet) 75 mg PO DAILY [facility] Citalopram Hydrobromide (Citalopram 40 Mg Tablet) 40 mg PO DAILY [facility] Divalproex Sodium (Divalproex Sodium 250 Mg Tablet) 750 mg PO QHS [facility] Last Admin: 08/30/20 21:52 Dose: 750 mg Documented by: Enoxaparin Sodium (Enoxaparin 40 Mg/0.4 Ml Syringe) 40 mg SC DAILY [facility] Famotidine (Famotidine 20 Mg Tablet) 20 mg PO BID [facility] Last Admin: 08/30/20 21:51 Dose: 20 mg Documented by: Guaifenesin (Guaifenesin 10 Ml Udc (200mg/10ml)) 20 ml PO Q4H PRN PRN PRN Reason: COUGH Last Admin: 08/31/20 10:10 Dose: 20 ml Documented by: Hydralazine HCl (Hydralazine 20 Mg/Ml Vial) 10 mg IV Q4H PRN PRN PRN Reason: SBP > 160 Sodium Chloride () 1,000 mls @ 125 mls/hr IV .Q8H [facility] Last Admin: 08/31/20 10:10 Dose: 125 mls/hr Documented by: Ceftriaxone Sodium (Rocephin) 1 gm in 50 mls @ 100 mls/hr IV Q24 [facility] Sodium Chloride () 250 mls @ 15 mls/hr IV .[id number] PRN PRN Reason: Saline Flush Sodium Chloride () 250 mls @ 15 mls/hr IV .[id number] PRN PRN Reason: Additional IVPB Infusion Ketorolac Tromethamine (Ketorolac 15 Mg/Ml Vial) 15 mg IV Q8 [facility] Stop: 08/31/20 22:01 Last Admin: 08/31/20 05:01 Dose: 15 mg Documented by: Magnesium Hydroxide (Magnesium Hydroxide 30 Ml Udc) 30 ml PO DAILY PRN PRN PRN Reason: Constipation Melatonin (Melatonin 3 Mg Tablet) 3 mg PO QHS PRN PRN PRN Reason: INSOMNIA Methylprednisolone (Methylprednisolone 40 Mg/Ml Vial) 40 mg IV Q8 [facility] Last Admin: 08/31/20 05:01 Dose: 40 mg Documented by: Nicotine (Nicotine 14 Mg Patch) 14 mg TD DAILY [facility] Last Admin: 08/30/20 19:02 Dose: 14 mg Documented by: Ondansetron HCl (Ondansetron 4 Mg/2 Ml Vial) 4 mg IV Q8H PRN PRN PRN Reason: NAUSEA/VOMITING Last Admin: 08/31/20 06:53 Dose: 4 mg Documented by: Pravastatin Sodium (Pravastatin 20 Mg Tablet) 20 mg PO QHS [facility] Last Admin: 08/30/20 21:51 Dose: 20 mg Documented by: Prochlorperazine Edisylate (Prochlorperazine 10 Mg/2 Ml Vial) 5 mg IV Q4H PRN PRN PRN Reason: Breakthrough nausea/vomiting Psyllium Hydrophilic Mucilloid (Psyllium 1 Packet) 1 packet PO DAILY PRN PRN PRN Reason: Constipation Quetiapine Fumarate (Quetiapine 100 Mg Tablet) 300 mg PO QHS [facility] Last Admin: 08/30/20 21:53 Dose: 300 mg Documented by: Quetiapine Fumarate (Quetiapine 100 Mg Tablet) 150 mg PO 1000,1600 [facility] Senna/Docusate Sodium (Senna/Docusate Sodium 1 Tablet) 2 tablet PO BID PRN PRN PRN Reason: Constipation Sodium Chloride (0.9% Saline Lock 10 Ml Syringe) 10 - 40 ml IV UD PRN PRN Reason: SALINE FLUSH Last Admin: 08/30/20 19:02 Dose: 10 ml Documented by: Throat Lozenges (Benzocaine/Menthol 1 Lozenge) 1 lozenge MUCOUS MEM Q2H PRN PRN PRN Reason: SORE THROAT Tizanidine HCl (Tizanidine Hcl 2 Mg Tablet) 2 mg PO Q8H PRN PRN PRN Reason: neck strain STROKE Vital Signs/Narrative: Vital Signs Temp Pulse Resp BP Pulse Ox 08/31/20 10:12 36.8 C 92 18 171/67 H 96 08/31/20 08:26 36.8 C 94 18 171/65 H 93 08/31/20 06:57 96 Medical Necessity - Tobacco Use Smoking Status: Current every day smoker Tobacco Use: Cigarettes Assessment/Plan All Active Problems Pneumonia (Acute) Hypoxemia (Acute) Sepsis (Acute) 1. Sepsis POA 2/2 pneumonia + rhinovirus 2. Acute hypoxic respiratory failure presented at 88% on RA, improved with 4 liters/oxygen 2/2 PNA, rhinovirus +/- RAD wean oxygen as tolerated pulm toilet continue methylprednisone for now. anticipate change to prednisone in 1-2 days 3. Pneumonia presumed pneumococcal on CTX Urinary ags negative 4. HTN accelerated likely due to underlying illness but cannot r/o underlying essential hypertension will start low-dose lisinopril (5 mg) and observe. Will not aggressively treat at this time as I expect it to drop as she feels better, which could lead to hypotension. 5. Hyponatremia not on any culprit medications Check TSH, AM cortisol, urine studies She was to see nephrology as outpt today, this will need to be rescheduled. No need for Tolvaptan at this time. 6. VTE prophylaxis: LMWH Inpatient E&M: [id number] Subs Hosp L2
[2020-08-31] MEDS: Citalopram 40 MG TABLET PO (11:14)
[2020-08-31] MEDS: buPROPion 75 MG Tablet PO (11:14)
[2020-08-31] MEDS: Famotidine 20 MG Tablet PO ×2 (11:14→22:11)
[2020-08-31] MEDS: QUEtiapine 100 MG Tablet 150 MG PO ×2 (11:15→16:19)
[2020-08-31] MEDS: Enoxaparin 40 MG/0.4 ML Syringe SC (11:15)
[2020-08-31] MEDS: Ceftriaxone 1 GM/50 ML BAG IV (11:16)
[2020-08-31 11:34] LABS: Thyroid Stim Hormone (TSH) 2.79 uIU/mL (0.358-3.74)
[2020-08-31 12:29] LABS: Osmolality, Serum 275 mOsm/KG (275-295)
[2020-08-31] MEDS: Ipratropium/Albuterol Sulfate 3 ML AMPUL.NEB INHALATION ×2 (13:08→19:01)
[2020-08-31 13:57] LABS: Urine Sodium 36 mmol/L (Not Establ.)
[2020-08-31 14:16] LABS: Osmolality, Urine 248 mOsm/KG
[2020-08-31] MEDS: Senna/Docusate Sodium 1 Tablet 2 TABLET PO (22:09)
[2020-08-31] MEDS: Pravastatin 20 MG Tablet PO (22:09)
[2020-08-31] MEDS: QUEtiapine 100 MG Tablet 300 MG PO (22:10)
[2020-08-31] MEDS: Divalproex Sodium 250 MG Tablet 750 MG PO (22:11)
[2020-08-31] MEDS: 0.9% Saline Lock 10 ML Syringe IV (22:12)
[2020-09-01] VITALS (12 sets, daily range): BP systolic 149–198; BP diastolic 65–93; PULSE 92–105; RESP 16–20; TEMP 36.5–36.8; O2SAT 94–97
[2020-09-01] MEDS: 0.9% Normal Saline 1,000 ML 125 ML IV ×2 (02:28→10:56)
[2020-09-01 06:10] LABS: Absolute Lymphocyte Count 0.87 X10^3/uL (0.83-4.51); Absolute Neutrophil Count 13.9 X10^3/uL (2.0-7.7); Basophil# 0.03 X10^3/uL; Basophil% 0.2 % (0-1); Hematocrit 35.1 % (37-47); Hemoglobin 11.8 g/dL (12.0-15.0); Lymphocyte # 0.87 X10^3/ul (4.0); Lymphocyte % 5.5 % (19-41); Mean Corp Hgb Conc 33.6 g/dL (32-36); Mean Corpuscular Hgb 31.9 pg (27.0-32.0); Mean Corpuscular Volume 94.9 fL (81-99); Mean Platelet Vol. 8.9 fl (6.2-12.0); Monocyte% 5.1 % (0-10); NRBC Flagged by Analyzer 0 % (0-5); Neutrophil # 13.93 X10^3/uL (2.7-7.7); Neutrophil % 88.5 % (47-70); Platelet Count 294 K/mm3 (150-450); RBC Distribution Width CV 13.7 % (11.6-14.6); RBC Distribution Width SD 47.7 fl (35.1-43.9); White Blood Count 15.7 K/mm3 (4.4-11.0)
[2020-09-01 06:37] LABS: Anion Gap 7 (5-15); BUN 8 mg/dL (7-18); BUN/Creat Ratio 14.5 RATIO (10-20); Calcium,Total 8.7 mg/dL (8.5-10.1); Chloride 97 mmol/L (98-107); Creatinine, Serum 0.55 mg/dL (0.55-1.02); EST Glomerular Filtration Rate 120 mL/min (>60); Est Glom Filt Rate - Afr Amer 145 mL/min (>60); Estimated Creatinine Clearance 96.19 ml/min; Glucose 123 mg/dL (74-106); Potassium 4.4 mmol/L (3.5-5.1); Sodium Level 131 mmol/L (136-145)
[2020-09-01] MEDS: Ipratropium/Albuterol Sulfate 3 ML AMPUL.NEB INHALATION ×3 (07:02→19:01)
[2020-09-01] MEDS: QUEtiapine 100 MG Tablet 150 MG PO ×2 (09:30→16:54)
[2020-09-01] MEDS: predniSONE 20 MG Tablet 40 MG PO (09:32)
[2020-09-01] MEDS: Citalopram 40 MG TABLET PO (09:32)
[2020-09-01] MEDS: Enoxaparin 40 MG/0.4 ML Syringe SC (09:33)
[2020-09-01] MEDS: Aspirin 81 MG TAB.CHEW PO (09:33)
[2020-09-01] MEDS: Acetaminophen 325 MG Tablet 650 MG PO ×2 (09:36→15:24)
[2020-09-01] MEDS: Famotidine 20 MG Tablet PO ×2 (09:37→21:11)
[2020-09-01] MEDS: buPROPion 75 MG Tablet PO (09:37)
[2020-09-01] MEDS: Ceftriaxone 1 GM/50 ML BAG IV (09:38)
[2020-09-01] MEDS: hydrALAZINE 20 MG/ML Vial 10 MG IV ×2 (09:52→16:55)
[2020-09-01] MEDS: 0.9% Saline Lock 10 ML Syringe IV ×4 (09:53→21:01)
[2020-09-01] MEDS: Lisinopril 10 MG Tablet PO (10:53)
--- NOTE | 2020-09-01 14:12 | PCM.PN.HOSP ---
Patient Problems: Active and Suspected Problems Pneumonia (Acute) Hypoxemia (Acute) Sepsis (Acute) Subjective: headache better with acetaminophen. Breathing better, but still on oxygen. Vitals/I&O's: Vital Signs Temp Pulse Resp BP Pulse Ox 36.5 C L 98 18 186/77 H 96 09/01/20 12:47 09/01/20 12:47 09/01/20 12:47 09/01/20 12:47 09/01/20 12:47 Oxygen Flow Rate (L/min) 2 Oxygen Delivery Method Nasal Cannula Weight: 56.019 kg Body Mass Index (BMI) 34.6 Intake and Output for Last 24 Hours 08/30/20 08/31/20 09/01/20 23:59 23:59 23:59 Intake Total 50 / 650 4995.00 / 5595.00 3150 / 3150 Output Total 1200 / 2100 1800 / 1800 Balance 50 / 650 3795.00 / 3495.00 1350 / 1350 General: Alert, No apparent distress HEENT: Atraumatic, Normocephalic Neck: No Nodes, Thyroid Normal Size and Texture Lungs: Normal air movement, Wheezes Cardiovascular: Regular rate, Regular Rhythm, Normal S1, Normal S2, No murmurs Abdomen: Bowel Sounds Present, Soft, Non Tender, Non-Distended, No Hepato-splenomegaly Extremities: No edema, No Calf Tenderness Skin: No rashes, No breakdown Musculoskeletal: No Tenderness to Palpation of Joints or Extremities, No Muscle Wasting Psych/Mental Status: Normal Affect, Appropriate Microbiology Past 72 Hours 08/30/20 14:02 Blood Culture (Wb) #2 - Left Hand Blood Culture - Preliminary No growth in 48 hours. 08/30/20 13:55 Blood Culture (Wb) - Anticubital Right Blood Culture - Preliminary No growth in 48 hours. 08/31/20 08:35 Sputum, Expectorated/Coughed Gram Stain - Final 08/30/20 22:15 Urine, Random Legionella Antigen - Final 08/30/20 22:15 Urine, Random Streptococcus pneumoniae Antigen (M - Final 08/30/20 Unknown Mucosa - Nasopharyngeal Respiratory Panel (PCR) - Final Rhinovirus 08/30/20 14:05 Mucosa - Nasopharyngeal Influenza Types A,B Direct FA ([place]) - Final 08/30/20 13:45 Mucosa - Nose SARS-CoV-2 Antigen (Rapid) - Final Laboratory Results 08/31/20 13:37: Urine Osmolality 248 09/01/20 05:54: WBC 15.7 H, RBC 3.70 L, Hgb 11.8 L, Hct 35.1 L, MCV 94.9, MCH 31.9, MCHC 33.6, RDW Std Deviation 47.7 H, RDW Coeff of Grey 13.7, Plt Count 294, MPV 8.9, Immature Gran % (Auto) 0.700, Neut % (Auto) 88.5 H, Lymph % (Auto) 5.5 L, [place] % (Auto) 5.1, Eos % (Auto) 0.0, Baso % (Auto) 0.2, Absolute Neuts (auto) 13.9 H, Absolute Lymphs (auto) 0.87, Nucleated RBC % 0 09/01/20 05:54: Sodium 131 L, Potassium 4.4, Chloride 97 L, Carbon Dioxide 27.0, Anion Gap 7, BUN 8, Creatinine 0.55, Estim Creat Clear Calc 96.19, Est GFR (MDRD) Af Amer 145, Est GFR (MDRD) Non-Af 120, BUN/Creatinine Ratio 14.5, Glucose 123 H, Calcium 8.7 09/01/20 05:54: Cortisol 12.00 Current Medications Acetaminophen (Acetaminophen 325 Mg Tablet) 650 mg PO Q6H PRN PRN PRN Reason: Pain Score 1-10/Temp > 100.7 F Last Admin: 09/01/20 09:36 Dose: 650 mg Documented by: Al Hydroxide/Mg Hydroxide (Mag Hydrox/Al Hydrox/Simeth 30 Ml Udc) 30 ml PO Q6H PRN PRN PRN Reason: Gastric Burning Albuterol Sulfate (Albuterol 2.5 Mg/3 Ml Vial.Neb.) 2.5 mg INHALATION Q2H PRN PRN PRN Reason: Dyspnea, wheezing Last Admin: 08/30/20 22:41 Dose: 2.5 mg Documented by: Albuterol/Ipratropium (Ipratropium/Albuterol Sulfate 3 Ml Ampul.Neb) 3 ml INHALATION Q6HWA.RT [facility] Last Admin: 09/01/20 13:43 Dose: 3 ml Documented by: Amlodipine Besylate (Amlodipine 5 Mg Tablet) 5 mg PO DAILY [facility] Aspirin (Aspirin 81 Mg Tab.Chew) 81 mg PO DAILY@0800 [facility] Last Admin: 09/01/20 09:33 Dose: 81 mg Documented by: Bupropion HCl (Bupropion 75 Mg Tablet) 75 mg PO DAILY [facility] Last Admin: 09/01/20 09:37 Dose: 75 mg Documented by: Citalopram Hydrobromide (Citalopram 40 Mg Tablet) 40 mg PO DAILY [facility] Last Admin: 09/01/20 09:32 Dose: 40 mg Documented by: Divalproex Sodium (Divalproex Sodium 250 Mg Tablet) 750 mg PO QHS [facility] Last Admin: 08/31/20 22:11 Dose: 750 mg Documented by: Enoxaparin Sodium (Enoxaparin 40 Mg/0.4 Ml Syringe) 40 mg SC DAILY [facility] Last Admin: 09/01/20 09:33 Dose: 40 mg Documented by: Famotidine (Famotidine 20 Mg Tablet) 20 mg PO BID [facility] Last Admin: 09/01/20 09:37 Dose: 20 mg Documented by: Guaifenesin (Guaifenesin 10 Ml Udc (200mg/10ml)) 20 ml PO Q4H PRN PRN PRN Reason: COUGH Last Admin: 08/31/20 10:10 Dose: 20 ml Documented by: Hydralazine HCl (Hydralazine 20 Mg/Ml Vial) 10 mg IV Q4H PRN PRN PRN Reason: SBP GREATER THAN 180 Last Admin: 09/01/20 09:52 Dose: 10 mg Documented by: Sodium Chloride () 1,000 mls @ 125 mls/hr IV .Q8H [facility] Last Admin: 09/01/20 10:56 Dose: 125 mls/hr Documented by: Ceftriaxone Sodium (Rocephin) 1 gm in 50 mls @ 100 mls/hr IV Q24 [facility] Last Infusion: 09/01/20 10:08 Dose: Infused Documented by: Sodium Chloride () 250 mls @ 15 mls/hr IV .[id number] PRN PRN Reason: Saline Flush Sodium Chloride () 250 mls @ 15 mls/hr IV .[id number] PRN PRN Reason: Additional IVPB Infusion Lisinopril (Lisinopril 10 Mg Tablet) 10 mg PO DAILY [facility] Magnesium Hydroxide (Magnesium Hydroxide 30 Ml Udc) 30 ml PO DAILY PRN PRN PRN Reason: Constipation Melatonin (Melatonin 3 Mg Tablet) 3 mg PO QHS PRN PRN PRN Reason: INSOMNIA Nicotine (Nicotine 14 Mg Patch) 14 mg TD DAILY [facility] Last Admin: 09/01/20 09:32 Dose: 14 mg Documented by: Ondansetron HCl (Ondansetron 4 Mg/2 Ml Vial) 4 mg IV Q8H PRN PRN PRN Reason: NAUSEA/VOMITING Last Admin: 08/31/20 06:53 Dose: 4 mg Documented by: Pravastatin Sodium (Pravastatin 20 Mg Tablet) 20 mg PO QHS [facility] Last Admin: 08/31/20 22:09 Dose: 20 mg Documented by: Prednisone (Prednisone 20 Mg Tablet) 40 mg PO DAILY@0800 [facility] Stop: 09/06/20 08:01 Last Admin: 09/01/20 09:32 Dose: 40 mg Documented by: Prochlorperazine Edisylate (Prochlorperazine 10 Mg/2 Ml Vial) 5 mg IV Q4H PRN PRN PRN Reason: Breakthrough nausea/vomiting Psyllium Hydrophilic Mucilloid (Psyllium 1 Packet) 1 packet PO DAILY PRN PRN PRN Reason: Constipation Quetiapine Fumarate (Quetiapine 100 Mg Tablet) 300 mg PO QHS [facility] Last Admin: 08/31/20 22:10 Dose: 300 mg Documented by: Quetiapine Fumarate (Quetiapine 100 Mg Tablet) 150 mg PO 1000,1600 [facility] Last Admin: 09/01/20 09:30 Dose: 150 mg Documented by: Senna/Docusate Sodium (Senna/Docusate Sodium 1 Tablet) 2 tablet PO BID PRN PRN PRN Reason: Constipation Last Admin: 08/31/20 22:09 Dose: 2 tablet Documented by: Sodium Chloride (0.9% Saline Lock 10 Ml Syringe) 10 - 40 ml IV UD PRN PRN Reason: SALINE FLUSH Last Admin: 09/01/20 09:53 Dose: 10 ml Documented by: Throat Lozenges (Benzocaine/Menthol 1 Lozenge) 1 lozenge MUCOUS MEM Q2H PRN PRN PRN Reason: SORE THROAT Tizanidine HCl (Tizanidine Hcl 2 Mg Tablet) 2 mg PO Q8H PRN PRN PRN Reason: neck strain STROKE Vital Signs/Narrative: Vital Signs Temp Pulse Resp BP Pulse Ox 09/01/20 12:47 36.5 C L 98 18 186/77 H 96 09/01/20 10:50 36.8 C 105 H 18 176/83 H 95 Medical Necessity - Tobacco Use Smoking Status: Current every day smoker Tobacco Use: Cigarettes Assessment/Plan All Active Problems Pneumonia (Acute) Hypoxemia (Acute) Sepsis (Acute) 1. Sepsis POA 2/2 pneumonia + rhinovirus 2. Acute hypoxic respiratory failure ongoing presented at 88% on RA, improved with 4 liters/oxygen 2/2 PNA, rhinovirus +/- RAD wean oxygen as tolerated pulm toilet change to prednisone burst for 5 days HLIV. furosemide challenge 3. Pneumonia presumed pneumococcal on CTX Urinary ags negative 4. HTN accelerated likely due to underlying illness but cannot r/o underlying essential hypertension still elevated start lisinopril 10 and amlodipine 5 5. Hyponatremia improved CW SIADH cortisol and TSH WNL She was to see nephrology as outpt today, this will need to be rescheduled. No need for Tolvaptan at this time. fluid restrict 6. VTE prophylaxis: LMWH 7. Disposition: anticipate discharge in 1-2 days Inpatient E&M: [id number] Subs Hosp L2
[2020-09-01] MEDS: Furosemide 40 MG Tablet PO ×2 (15:17→16:58)
[2020-09-01] MEDS: QUEtiapine 100 MG Tablet 300 MG PO (21:11)
[2020-09-01] MEDS: Divalproex Sodium 250 MG Tablet 750 MG PO (21:11)
[2020-09-01] MEDS: Pravastatin 20 MG Tablet PO (21:11)
[2020-09-01] MEDS: Senna/Docusate Sodium 1 Tablet 2 TABLET PO (21:21)
[2020-09-02 03:13] VITALS: BP 152/86; PULSE 86; RESP 18; TEMP 36.6; O2SAT 98
[2020-09-02] MEDS: Acetaminophen 325 MG Tablet 650 MG PO (04:49)
[2020-09-02 06:43] LABS: Absolute Lymphocyte Count 2.21 X10^3/uL (0.83-4.51); Absolute Neutrophil Count 11.2 X10^3/uL (2.0-7.7); Basophil# 0.04 X10^3/uL; Basophil% 0.3 % (0-1); Eosinophil# 0.07 X10^3/uL; Eosinophils% 0.5 % (0-5); Hematocrit 39.5 % (37-47); Hemoglobin 13.1 g/dL (12.0-15.0); Lymphocyte # 2.21 X10^3/ul (4.0); Lymphocyte % 14.5 % (19-41); Mean Corp Hgb Conc 33.2 g/dL (32-36); Mean Corpuscular Hgb 31.7 pg (27.0-32.0); Mean Corpuscular Volume 95.6 fL (81-99); Mean Platelet Vol. 9.1 fl (6.2-12.0); Monocyte# 1.64 X10^3/uL; Monocyte% 10.7 % (0-10); NRBC Flagged by Analyzer 0 % (0-5); Neutrophil % 73.3 % (47-70); POSITIVE DIFFERENTIAL YES; Platelet Count 355 K/mm3 (150-450); RBC Distribution Width SD 49.1 fl (35.1-43.9); Red Blood Count 4.13 M/mm3 (4.2-5.4); White Blood Count 15.3 K/mm3 (4.4-11.0)
[2020-09-02 06:45] LABS: Differential Indicated SCAN CRITERIA MET
[2020-09-02 07:01] LABS: Differential Comment SCANNED
[2020-09-02 07:09] LABS: Anion Gap 1 (5-15); BUN 15 mg/dL (7-18); BUN/Creat Ratio 22.3 RATIO (10-20); Calcium,Total 8.9 mg/dL (8.5-10.1); Chloride 96 mmol/L (98-107); Creatinine, Serum 0.67 mg/dL (0.55-1.02); EST Glomerular Filtration Rate 95 mL/min (>60); Est Glom Filt Rate - Afr Amer 115 mL/min (>60); Estimated Creatinine Clearance 90.07 ml/min; Glucose 88 mg/dL (74-106); Potassium 3.5 mmol/L (3.5-5.1); Sodium Level 132 mmol/L (136-145)
[2020-09-02] MEDS: Ipratropium/Albuterol Sulfate 3 ML AMPUL.NEB INHALATION (07:48)
[2020-09-02 07:49] VITALS: PULSE 92; RESP 20; O2SAT 94
[2020-09-02 08:15] VITALS: BP 124/44; PULSE 100; RESP 18; TEMP 36.7; O2SAT 98
[2020-09-02] MEDS: predniSONE 20 MG Tablet 40 MG PO (08:21)
[2020-09-02] MEDS: Aspirin 81 MG TAB.CHEW PO (08:21)
[2020-09-02] MEDS: Ceftriaxone 1 GM/50 ML BAG IV (09:14)
[2020-09-02] MEDS: 0.9% Saline Lock 10 ML Syringe IV (09:14)
--- NOTE | 2020-09-02 09:27 | DCINST_ITS ---
- Discharge Diagnoses Current Active Problems: Current Active and Chronic Problems Anxiety (Chronic) Hyperlipidemia (Chronic) Pneumonia (Acute) Hypoxemia (Acute) Sepsis (Acute) Obesity (BMI 30-39.9) (Chronic) Tobacco use (Chronic) You will use the following diet at home:: No restrictions Your food should be the consistency of: Regular Discharge Activity: Return to Normal Activity Call your doctor if you observe: Fever of 101 or Higher, Shortness of breath Additional Instructions: You may have your 2nd COVID-19 vaccination on 09/05/2020 as long as you are feeling well enough, if not, postpone it until you are feeling better. Allergies/Adverse Reactions: Allergies acetaminophen [From Percocet] Adverse Reaction (Verified 08/30/20 13:04) Vomiting oxycodone [From Percocet] Adverse Reaction (Verified 08/30/20 13:04) Vomiting Medications to take at Discharge Aspirin [Aspirin, Baby] 81 mg PO DAILY@0800 08/30/20 Cholecalciferol (Vitamin D3) [Vitamin D3] 2,000 unit PO DAILY 08/30/20 Citalopram [Celexa] 40 mg PO DAILY 08/30/20 Divalproex Sodium [Depakote] 750 mg PO QHS 08/30/20 Rewey-3 Fatty Acids/Fish Oil [Fish Oil 1,000 mg Capsule] 1 each PO DAILY 08/30/20 Pravastatin [Pravachol] 20 mg PO QHS 08/30/20 Quetiapine Fumarate [Seroquel] 150 mg PO BID 08/30/20 Quetiapine Fumarate [Seroquel] 300 mg PO QHS 08/30/20 buPROPion tablets [Wellbutrin tablets] 75 mg PO DAILY 08/30/20 Amlodipine [Norvasc] 5 mg PO DAILY #30 tablet 09/02/20 Amoxicillin/Potassium Clav [Augmentin 875-125 Tablet] 1 each PO BID #6 tablet 09/02/20 Lisinopril [Zestril] 10 mg PO DAILY #30 tablet 09/02/20 predniSONE tablet 2 tablet PO DAILY@0800 #6 tablet 09/02/20 The following prescriptions were given: Amoxicillin/Potassium Clav [Augmentin 875-125 Tablet] 1 each PO BID #6 tablet Transmission Status: Pending to [facility] Amlodipine [Norvasc] 5 mg PO DAILY #30 tablet Transmission Status: Pending to [facility] predniSONE tablet 2 tablet PO DAILY@0800 #6 tablet Transmission Status: Pending to [facility] Lisinopril [Zestril] 10 mg PO DAILY #30 tablet Transmission Status: Pending to [facility] Primary Care Physician: Baltazar Andrade MD [Primary Care Provider] - Within 2 Weeks Test Results: Test results from this visit will be discussed in further detail at your follow- up appointment, if applicable. Proposed Discharge Date: 09/02/20
--- NOTE | 2020-09-02 09:31 | PCM.DC.SUM ---
Discharge Date and Diagnosis - Problem List Patient Problems: Active and Suspected Problems Pneumonia (Acute) Hypoxemia (Acute) Sepsis (Acute) Date of Admission: 08/30/20 Date of Discharge: 09/02/20 - Primary Discharge Diagnosis Acute Problems: Active Problems 1. Sepsis POA and improved 2/2 pneumonia + rhinovirus 2. Acute hypoxic respiratory failure improved, now down to 1 liter presented at 88% on RA, improved with 4 liters/oxygen 2/2 PNA, rhinovirus +/- RAD wean oxygen as tolerated pulm toilet prednisone burst for 5 days HLIV. furosemide challenge check ambulatory pulse ox. 3. Pneumonia presumed pneumococcal on CTX Urinary ags negative change to amoxicillin/clauvulaic acid to complete 7-day course of abx. 4. HTN accelerated likely due to underlying illness and underlying essential hypertension improved continue lisinopril 10 and amlodipine 5 5. Hyponatremia improved CW SIADH cortisol and TSH WNL She was to see nephrology as outpt today, this will need to be rescheduled. No need for Tolvaptan at this time. fluid restrict - Secondary Discharge Diagnosis Chronic Problems: Chronic Problems Anxiety (Chronic) Hyperlipidemia (Chronic) Obesity (BMI 30-39.9) (Chronic) Tobacco use (Chronic) Hospital Course and Treatment Imaging Results: Clinical Impression(s) from Imaging Studies Chest X-Ray 08/30/20 15:15 IMPRESSION: Ill-defined opacities within the lower lungs, a nonspecific finding may be secondary to underlying atelectasis and/or pneumonia. Electronically Signed: Birgit Castillo MD at 16:05 EDT Tel , Service support , Operations: None Procedures: None Summary of Care Provided: The patient is a 60 year old F presents with dyspnea and cough. She patient was found to have pneumonia on x-ray as well as positive for rhinovirus. Patient had audible wheezing so patient did have acute hypoxic respiratory failure was requiring 4 L of oxygen. Patient was started on methylprednisolone as well as azithromycin and ceftriaxone. Patient's respiratory status slowly improved but still continued to have wheezing. Patient was transitioned over to prednisone. Upon discharge, patient will complete a 7-day course of antibiotics with amoxicillin/clavulanic acid. Patient will have an amatory pulse ox prior to discharge. Complicating her hospitalization was hypertensive urgency. Systolic blood pressure went to the 190s. Patient was started on amlodipine as well as lisinopril and blood pressure has improved greatly down to 122 systolic. Patient will continue with amlodipine as well as lisinopril at the previous mentioned doses. Patient to follow-up with primary care provider to see if there is no need to be adjusted further. Patient does have chronic hyponatremia and was to see a automotive glass specialist while she was here in the hospital. That had to be rescheduled. Patient had work-up and Patient's urine osmolality and urine sodium were consistent with SIADH. TSH and cortisol were normal. Patient advised to limit her fluid intake to 1.5 L/day. Patient advised to follow-up with nephrology at her earliest convenience. [] Patient Problems: Active and Suspected Problems Pneumonia (Acute) Hypoxemia (Acute) Sepsis (Acute) - Physical Exam Vitals/I&O's: Vital Signs Temp Pulse Resp BP Pulse Ox 36.7 C 100 18 124/44 H 98 09/02/20 08:15 09/02/20 08:15 09/02/20 08:15 09/02/20 08:15 09/02/20 08:15 Oxygen Flow Rate (L/min) 2 Oxygen Delivery Method Nasal Cannula Weight: 102.4 kg Body Mass Index (BMI) 34.6 Intake and Output for Last 24 Hours 08/31/20 09/01/20 09/02/20 23:59 23:59 23:59 Intake Total 4995.00 / 5595.00 4950 / 5230 520 / 520 Output Total 1200 / 2100 5700 / 8700 3700 / 3700 Balance 3795.00 / 3495.00 -750 / -3470 -3180 / -3180 General: Alert, No apparent distress HEENT: Atraumatic Oral: Moist Mucosa, No Gingival or Mucosal Lesions/ Ulcerations Neck: No Nodes, Thyroid Normal Size and Texture Lungs: Normal air movement, Wheezes Cardiovascular: Regular rate, Regular Rhythm, Normal S1, Normal S2 Abdomen: Bowel Sounds Present, Soft, Non Tender, Non-Distended Microbiology Past 72 Hours 08/31/20 08:35 Sputum, Expectorated/Coughed Gram Stain - Final 08/31/20 08:35 Sputum, Expectorated/Coughed Respiratory Culture - Final 08/30/20 14:02 Blood Culture (Wb) #2 - Left Hand Blood Culture - Preliminary No growth in 48 hours. 08/30/20 13:55 Blood Culture (Wb) - Anticubital Right Blood Culture - Preliminary No growth in 48 hours. 08/30/20 22:15 Urine, Random Legionella Antigen - Final 08/30/20 22:15 Urine, Random Streptococcus pneumoniae Antigen (M - Final 08/30/20 Unknown Mucosa - Nasopharyngeal Respiratory Panel (PCR) - Final Rhinovirus 08/30/20 14:05 Mucosa - Nasopharyngeal Influenza Types A,B Direct FA (ORALIA) - Final 08/30/20 13:45 Mucosa - Nose SARS-CoV-2 Antigen (Rapid) - Final Laboratory Results 09/02/20 06:25: WBC 15.3 H, RBC 4.13 L, Hgb 13.1, Hct 39.5, MCV 95.6, MCH 31.7, MCHC 33.2, RDW Std Deviation 49.1 H, RDW Coeff of Grey 14.0, Plt Count 355, MPV 9.1, Immature Gran % (Auto) 0.700, Neut % (Auto) 73.3 H, Lymph % (Auto) 14.5 L, Chambers % (Auto) 10.7 H, Eos % (Auto) 0.5, Baso % (Auto) 0.3, Absolute Neuts (auto) 11.2 H, Absolute Lymphs (auto) 2.21, Nucleated RBC % 0, Differential Comment SCANNED, Diff Path Review September foll 09/02/20 06:25: Sodium 132 L, Potassium 3.5, Chloride 96 L, Carbon Dioxide 35.0 H, Anion Gap 1 L, BUN 15, Creatinine 0.67, Estim Creat Clear Calc 90.07, Est GFR (MDRD) Af Amer 115, Est GFR (MDRD) Non-Af 95, BUN/Creatinine Ratio 22.3 H, Glucose 88, Calcium 8.9 Current Medications Acetaminophen (Acetaminophen 325 Mg Tablet) 650 mg PO Q6H PRN PRN PRN Reason: Pain Score 1-10/Temp > 100.7 F Last Admin: 09/02/20 04:49 Dose: 650 mg Documented by: Al Hydroxide/Mg Hydroxide (Mag Hydrox/Al Hydrox/Simeth 30 Ml Udc) 30 ml PO Q6H PRN PRN PRN Reason: Gastric Burning Albuterol Sulfate (Albuterol 2.5 Mg/3 Ml Vial.Neb.) 2.5 mg INHALATION Q2H PRN PRN PRN Reason: Dyspnea, wheezing Last Admin: 08/30/20 22:41 Dose: 2.5 mg Documented by: Albuterol/Ipratropium (Ipratropium/Albuterol Sulfate 3 Ml Ampul.Neb) 3 ml INHALATION Q6HWA.RT [facility] Last Admin: 09/02/20 07:48 Dose: 3 ml Documented by: Amlodipine Besylate (Amlodipine 5 Mg Tablet) 5 mg PO DAILY [facility] Aspirin (Aspirin 81 Mg Tab.Chew) 81 mg PO DAILY@0800 [facility] Last Admin: 09/02/20 08:21 Dose: 81 mg Documented by: Bupropion HCl (Bupropion 75 Mg Tablet) 75 mg PO DAILY [facility] Last Admin: 09/01/20 09:37 Dose: 75 mg Documented by: Citalopram Hydrobromide (Citalopram 40 Mg Tablet) 40 mg PO DAILY [facility] Last Admin: 09/01/20 09:32 Dose: 40 mg Documented by: Divalproex Sodium (Divalproex Sodium 250 Mg Tablet) 750 mg PO QHS [facility] Last Admin: 09/01/20 21:11 Dose: 750 mg Documented by: Enoxaparin Sodium (Enoxaparin 40 Mg/0.4 Ml Syringe) 40 mg SC DAILY [facility] Last Admin: 09/01/20 09:33 Dose: 40 mg Documented by: Famotidine (Famotidine 20 Mg Tablet) 20 mg PO BID [facility] Last Admin: 09/01/20 21:11 Dose: 20 mg Documented by: Furosemide (Furosemide 40 Mg Tablet) 40 mg PO BID@1000,1800 [facility] Last Admin: 09/01/20 16:58 Dose: 40 mg Documented by: Guaifenesin (Guaifenesin 10 Ml Udc (200mg/10ml)) 20 ml PO Q4H PRN PRN PRN Reason: COUGH Last Admin: 08/31/20 10:10 Dose: 20 ml Documented by: Hydralazine HCl (Hydralazine 20 Mg/Ml Vial) 10 mg IV Q4H PRN PRN PRN Reason: SBP GREATER THAN 180 Last Admin: 09/01/20 16:55 Dose: 10 mg Documented by: Ceftriaxone Sodium (Rocephin) 1 gm in 50 mls @ 100 mls/hr IV Q24 [facility] Last Admin: 09/02/20 09:14 Dose: 100 mls/hr Documented by: Sodium Chloride () 250 mls @ 15 mls/hr IV .[id number] PRN PRN Reason: Saline Flush Sodium Chloride () 250 mls @ 15 mls/hr IV .[id number] PRN PRN Reason: Additional IVPB Infusion Lisinopril (Lisinopril 10 Mg Tablet) 10 mg PO DAILY [facility] Magnesium Hydroxide (Magnesium Hydroxide 30 Ml Udc) 30 ml PO DAILY PRN PRN PRN Reason: Constipation Melatonin (Melatonin 3 Mg Tablet) 3 mg PO QHS PRN PRN PRN Reason: INSOMNIA Nicotine (Nicotine 14 Mg Patch) 14 mg TD DAILY [facility] Last Admin: 09/01/20 09:32 Dose: 14 mg Documented by: Ondansetron HCl (Ondansetron 4 Mg/2 Ml Vial) 4 mg IV Q8H PRN PRN PRN Reason: NAUSEA/VOMITING Last Admin: 08/31/20 06:53 Dose: 4 mg Documented by: Pravastatin Sodium (Pravastatin 20 Mg Tablet) 20 mg PO QHS [facility] Last Admin: 09/01/20 21:11 Dose: 20 mg Documented by: Prednisone (Prednisone 20 Mg Tablet) 40 mg PO DAILY@0800 [facility] Stop: 09/06/20 08:01 Last Admin: 09/02/20 08:21 Dose: 40 mg Documented by: Prochlorperazine Edisylate (Prochlorperazine 10 Mg/2 Ml Vial) 5 mg IV Q4H PRN PRN PRN Reason: Breakthrough nausea/vomiting Psyllium Hydrophilic Mucilloid (Psyllium 1 Packet) 1 packet PO DAILY PRN PRN PRN Reason: Constipation Quetiapine Fumarate (Quetiapine 100 Mg Tablet) 300 mg PO QHS [facility] Last Admin: 09/01/20 21:11 Dose: 300 mg Documented by: Quetiapine Fumarate (Quetiapine 100 Mg Tablet) 150 mg PO 1000,1600 [facility] Last Admin: 09/01/20 16:54 Dose: 150 mg Documented by: Senna/Docusate Sodium (Senna/Docusate Sodium 1 Tablet) 2 tablet PO BID PRN PRN PRN Reason: Constipation Last Admin: 09/01/20 21:21 Dose: 2 tablet Documented by: Sodium Chloride (0.9% Saline Lock 10 Ml Syringe) 10 - 40 ml IV UD PRN PRN Reason: SALINE FLUSH Last Admin: 09/02/20 09:14 Dose: 10 ml Documented by: Throat Lozenges (Benzocaine/Menthol 1 Lozenge) 1 lozenge MUCOUS MEM Q2H PRN PRN PRN Reason: SORE THROAT Tizanidine HCl (Tizanidine Hcl 2 Mg Tablet) 2 mg PO Q8H PRN PRN PRN Reason: neck strain Discharge Diet: No Restrictions Discharge Activity: Return to Normal Activity Call your doctor if you observe: Fever of 101 or Higher, Shortness of breath Home Medications: Medications to take at Discharge Aspirin [Aspirin, Baby] 81 mg PO DAILY@0800 08/30/20 Cholecalciferol (Vitamin D3) [Vitamin D3] 2,000 unit PO DAILY 08/30/20 Citalopram [Celexa] 40 mg PO DAILY 08/30/20 Divalproex Sodium [Depakote] 750 mg PO QHS 08/30/20 [place]-3 Fatty Acids/Fish Oil [Fish Oil 1,000 mg Capsule] 1 each PO DAILY 08/30/20 Pravastatin [Pravachol] 20 mg PO QHS 08/30/20 Quetiapine Fumarate [Seroquel] 150 mg PO BID 08/30/20 Quetiapine Fumarate [Seroquel] 300 mg PO QHS 08/30/20 buPROPion tablets [Wellbutrin tablets] 75 mg PO DAILY 08/30/20 Albuterol Inhaler [Ventolin Hfa] 1 - 2 puff INHALATION Q4H PRN PRN #1 inhaler 09/02/20 Amlodipine [Norvasc] 5 mg PO DAILY #30 tablet 09/02/20 Amoxicillin/Potassium Clav [Augmentin 875-125 Tablet] 1 each PO BID #6 tablet 09/02/20 Lisinopril [Zestril] 10 mg PO DAILY #30 tablet 09/02/20 predniSONE tablet 2 tablet PO DAILY@0800 #6 tablet 09/02/20 Following Prescriptions Were Given to Patient: Amoxicillin/Potassium Clav [Augmentin 875-125 Tablet] 1 each PO BID #6 tablet Transmission Status: Received by [facility] Amlodipine [Norvasc] 5 mg PO DAILY #30 tablet Transmission Status: Received by [facility] predniSONE tablet 2 tablet PO DAILY@0800 #6 tablet Transmission Status: Received by [facility] Albuterol Inhaler [Ventolin Hfa] 1 - 2 puff INHALATION Q4H PRN PRN #1 inhaler PRN Reason: Shortness Of Breath Lisinopril [Zestril] 10 mg PO DAILY #30 tablet Transmission Status: Received by [facility] Primary Care Physician: Baltazar Andrade MD [Primary Care Provider] - Within 2 Weeks Disposition: Home Minutes spent on discharge:: 35 Patient Condition:: Good Medical Necessity - Tobacco Use Smoking Status: Current every day smoker Tobacco Use: Cigarettes Meaningful Use Info Meaningful Use Diagnoses (Choose all that apply): None applicable Inpatient E&M: [id number] [facility]
[2020-09-02] MEDS: Famotidine 20 MG Tablet PO (10:00)
[2020-09-02] MEDS: Citalopram 40 MG TABLET PO (10:00)
[2020-09-02] MEDS: Furosemide 40 MG Tablet PO (10:00)
[2020-09-02] MEDS: amLODIPine 5 MG Tablet PO (10:00)
[2020-09-02 10:05] VITALS: PULSE 100; O2SAT 95
[2020-09-02 10:11] VITALS: O2SAT 95
[2020-09-02] MEDS: QUEtiapine 100 MG Tablet 150 MG PO (11:38)
[2020-09-02] MEDS: buPROPion 75 MG Tablet PO (11:38)
[2020-09-02] MEDS: Lisinopril 10 MG Tablet PO (11:39)
[2020-09-02 12:18] VITALS: BP 136/61; PULSE 89; RESP 18; TEMP 36.9; O2SAT 93
[2020-09-02 13:51] LABS: Pathologist Review Reviewed
== END 2020-09-02 13:15 | disposition home or self-care (01) | DRG 871 ==
LOC: ED 17:04 → MS3 17:15
PROVIDERS: Admitting Provider Family Medicine; Emergency Provider Emergency Medicine; PCP Family Medicine
DX: A41.9 Sepsis, unspecified organism (principal); J18.9 Pneumonia, unspecified organism; J96.01 Acute respiratory failure with hypoxia; E22.2 Syndrome of inappropriate secretion of antidiuretic hormone; B97.89 Other viral agents as the cause of diseases classified elsewhere; I16.0 Hypertensive urgency; E78.5 Hyperlipidemia, unspecified; F41.9 Anxiety disorder, unspecified; F31.9 Bipolar disorder, unspecified; E66.9 Obesity, unspecified; F17.210 Nicotine dependence, cigarettes, uncomplicated; Z68.34 Body mass index [BMI] 34.0-34.9, adult; Z86.16 Personal history of COVID-19
CPT/HCPCS: 36415; 71045; 80048; 80053; 82533; 83605; 83735; 83880; 83930; 83935; 84145; 84300; 84443; 84484; 85025; 87040; 87070; 87205; 87426; 87449; 87633; 87804; 93005; 94640; 94667; 94668; 99251; 99285; 99406; J7030; J7050; A4216; G0463; J2405